=== PATIENT | female | born 1975 | race Caucasian/White ===

== ENCOUNTER → 2017-11-28 10:39 | Outpatient (CLI) | payer OTHER, SELFPAY ==
[2017-11-28 11:40] LABS: Add Manual Diff / Slide Review NO; Basophils Percent Auto 0.3 % (0-2); Eosinophils Percent Auto 0.3 % (2-4); Hematocrit 41.6 % (36-46); Hemoglobin 14.2 g/dL (12.0-16.0); Lymphocytes Percent Auto 29.9 % (25-40); Mean Corpuscular HGB Conc 34.1 % (30-36); Mean Corpuscular Hemoglobin 28.5 PG (26-34); Mean Corpuscular Volume 83.7 fL (80-100); Monocytes Percent Auto 6.6 % (3-14); Neutrophils Absolute Auto 6200 /uL (3000-5900); Neutrophils Percent Auto 62.9 % (50-75); Platelet Count 250 X10^3/uL (150-400); Red Blood Cell Count 4.97 X10^6/uL (4.0-5.2); Red Cell Distribution Width 13.5 % (11.6-14.8); White Blood Cell Count 9.8 X10^3/uL (4.5-11.0)
[2017-11-28 11:41] LABS: Blood Urea Nitrogen 12 mg/dL (7-17); Calcium 9.4 mg/dL (8.4-10.2); Carbon Dioxide 29 mmol/L (22-32); Chloride 101 mmol/L (98-107); Estimated Glomerular Filt Rate > 60.0 mL/min (>60); Glucose 101 mg/dL (70-100); HEMOLYSIS 20 (0-50); Potassium 4.2 mmol/L (3.4-5.1); Sodium 141 mmol/L (137-145)
[2017-11-28 12:16] LABS: Bacteria Urine None Seen; RBC Urine None Seen (0-5/HPF); WBC Urine None Seen (0-5/HPF)
[2017-11-28 14:19] LABS: Appearance Urine UA CLEAR; Bilirubin Urine UA NEGATIVE (NEGATIVE); Color Urine UA YELLOW; Glucose Urine UA NEGATIVE (Normal); Ketones Urine UA NEGATIVE (NEGATIVE); Leukocyte Esterase Urine UA NEGATIVE (NEGATIVE); Nitrite Urine UA Negative (Negative); Occult Blood Urine UA 1+ (Negative); Protein Urine UA NEGATIVE (Negative); Specific Gravity Urine UA 1.015 (1.000-1.035); Urobilinogen Urine UA 0.2 E.U./dL (0.2); pH Urine UA 7.5 (4.5-8.0)
[2017-11-28 14:35] LABS: Squamous Epithelial Cell Urine 5-10 /HPF
== END ==
PROVIDERS: PCP Family Medicine; Visit Provider Obstetrics & Gynecology
DX: N93.9 Abnormal uterine and vaginal bleeding, unspecified (principal); R10.2 Pelvic and perineal pain
CPT/HCPCS: 36415; 80048; 81001; 85025; 86850; 86900; 86901; 87086

== ENCOUNTER 2017-12-01 06:29 | Inpatient (IN) | payer OTHER, SELFPAY ==
[2017-11-20 08:33] VITALS: BMI 43.0
[2017-12-01] VITALS (17 sets, daily range): BP systolic 119–143; BP diastolic 57–87; PULSE 62–92; RESP 10–18; TEMP 36.1–36.9; O2SAT 90–100; BMI 43.0
--- NOTE | 2017-12-01 | PATH_ITS ---
[facility] Accession Number: [id number] . 01 Material submitted: . UTERUS,BILATERAL FALLOPIAN TUBES AND RIGHT OVARY . 01 Clinical history: . PLEASE ANALYZE ADENOMYOSIS PER SURGEON DR. BAZAN . 02 Diagnosis: Uterus, Bilateral Fallopian Tubes and Right Ovary, Hysterectomy, Bilateral Salpingectomy, and Right Oophorectomy (Weight 164 grams): Cervix with no significant histomorphologic abnormality. Endocervix with nabothian gland cysts and microglandular hyperplasia; negative for glandular dysplasia and malignancy. Weakly proliferative and disordered proliferative endometrium; negative for glandular hyperplasia, cytologic atypia, and malignancy. Myometrium with involvement by adenomyosis and with one intramural leiomyoma (0.5 cm). Uterine serosa with no significant histomorphologic abnormality. Right and left fallopian tubes with benign paratubal cysts (1-3 mm in greatest dimension); negative for atypia and neoplasia. Right ovary with a hemorrhagic corpus luteum cyst, multiple follicular cysts, and with stromal hyperthecosis; negative for malignancy. MRV/12/03/2017 . 02 Electronically signed: . Yaima Adler MD, Pathologist NPI- [id number] . 01 Gross description: . Received in formalin, labeled uterus, BL fallopian tubes and right ovary, is a uterus (164 grams, 5.6 cm AP, 10.5 cm SI, 6.7 cm ML) with an attached right ovary (3.7 x 3.3 x 2.5 cm) and fimbriated fallopian tubes (right: length-5.2 cm, diameter-0.8 cm; left: length-5.5 cm, diameter-0.9 cm). The left ovary is absent. The cervix (2.0 cm AP, 3.5 cm ML) has a vaginal cuff (up to 1.3 cm in depth), transverse os, and patent endocervical canal. The endometrium (average thickness-0.2 cm) is solomon-pink smooth and flat. The myometrium (thickness-2.5 cm) is solomon-white with a focally white lacy pattern and contains a solid firm white whorled well-circumscribed homogenous nodule (0.5 x 0.5 x 0.4 cm). The serosa is pale solomon smooth and shiny. The ovary has solomon-yellow smooth flat serosa and solomon-white solid cystic parenchyma with corpus albicans and corpus luteum identified. The cavities (0.5 cm-2.5 cm) contain clear colorless fluid. The linings are smooth and flat with no excrescences identified. The fallopian tubes have dark maroon dull serosa with multiple paratubal cysts (0.1 cm-0.3 cm) containing clear turbid fluid. The lumens are solomon and unremarkable. Section code: (A1) anterior cervix; (A2) posterior cervix; (A3-A6) anterior endomyometrium; (A7-A10) posterior endomyometrium; (A11-A13) right ovary, patient access representative serial section; (A14) right fallopian tube, patient access representative serial section; (A15) right fimbria, bivalved, entirely submitted; (A16) left fallopian tube, patient access representative serial section; (A17) left fimbria, bivalved, entirely submitted. ([id number]) /[facility] . 02 Pathologist provided ICD-10: N80.0 . 02 CPT . 102315 Performed at: 01 [facility] [address] [facility]– [place], [place], [place] [id number] MD Zach Moses MD Phone: [phone] Performed at: 02 [facility] [address] [place], [place] [id number] MD Jesse Shaffer MD Phone: [phone]
--- NOTE | 2017-12-01 07:43 | PM.PREOP ---
Pre-operative Note Interval Note Pre-op Check: Yes History & Physical Reviewed by Physician Changes: No
[2017-12-01] MEDS: CEFAZOLIN 2 GM/100 ML FROZ.PIGGY IV (08:00)
[2017-12-01] MEDS: LACTATED RINGERS 1,000 ML 42 ML IV ×2 (08:18→09:42)
--- NOTE | 2017-12-01 08:55 | SUR.OPER ---
Lithotomy on padded OR bed. Solana Pad Positioner under torso. Head on pillow, arms foam padded and on padded armboards secured <90 abduction. Legs secured in padded yellow fins stirrups.
[2017-12-01] MEDS: BUPIVACAINE 0.25% (PF) VIAL 30 ML INJ (09:33)
[2017-12-01] MEDS: LIDOCAINE 1% W/EPI INJ 4 ML INJ (09:34)
[2017-12-01] MEDS: ACETAMINOPHEN IV 1,000 MG/100 ML VIAL 400 MG IV (10:06)
[2017-12-01] MEDS: fentaNYL 100 MCG/2 ML INJ 50 MCG IV (11:51)
--- NOTE | 2017-12-01 11:58 | P.OP_ITS ---
Operative Date/Time/Diagnoses Date of procedure: 12/01/17 Time of procedure: 08:00 Pre-op diagnosis: Abnormal uterine bleeding, chronic pelvic pain Post-op diagnosis: same (Suspected adenomyosis) Procedure: Procedures Operation Date: 12/01/17 07:45 Actual Procedures Side Surgeon p Laparoscopic Assisted Vag Hysterectomy w/Bilat Salpingectomy & Right Oophorectomy Minerva Presley MD Indications: The patient is a 42-year-old 4, para 3, abortus 1 female here for hysterectomy for definitive surgical management of abnormal uterine bleeding and chronic pelvic pain. She has had chronic right lower quadrant pain that comes and goes and has not improved with a progestin intrauterine device and ovulation suppression. Her pain increases just prior to and during her vaginal bleeding episodes. Her bleeding was doing better since the insertion of the Mirena; however, menses since October have been much more bothersome and prolonged. She had a an MRI in July 2017 that showed diffuse adenomyosis and a small submucosal versus intramural probable fibroid. She had an endometrial biopsy in July 2016, and Mirena IUD was inserted at that time for management of her abnormal uterine bleeding. Utrasound at that time was notable for an anterior uterine mass suggestive of fibroid versus adenomyosis. After reviewing all of her management options, the patient elects to do have a hysterectomy with a right oophorectomy, as the majority of her pain is at the right lower quadrant. The risks, benefits, limitations, alternatives, and expectations of surgery were discussed, and the consent was reviewed and signed prior to the date of surgery. Surgeon: Minerva Presley Thermostatic Controls Supervisor: Piter Elise Anesthesia Type: General and Local (0.25% marcaine (plain) and 1% lidocaine with epi) Operative Notes Findings: Exam under anesthesia: The uterus was anteverted and measured approximately 8 weeks in size. No adnexal masses were palpable. Operative findings: The uterus was approximately 8 weeks in size. The ovaries were normal in appearance bilaterally. Both fallopian tubes were noted to have diffuse cystic lesions suggestive of endosalpingiosis. There were no endometriosis lesions noted. Athin adhesion from the left ovary into the left ovarian fossa was noted. The appendix was not visualized. Closure Type: primary Specimen(s): left tube, right tube & ovary and uterus (Uterus, cervix, bilateral fallopian tubes, and right ovary - sent as one specimen) Applied: catheter Estimated blood loss (mL): 200 Blood products transfused: none Procedure in detail: The patient was taken to the operating room, where general endotracheal anesthesia was administered without complications. The patient was placed into the low dorsal lithotomy position with her lower extremities in Yellofin stirrups. Exam under anesthesia was then performed with the findings noted above. Perineum, vagina, and abdomen were then prepped and draped in a sterile fashion. A Dwyer catheter was then placed. Procedure time-out was then performed. Attention was first turned to the perineum for placement of the uterine manipulator. A sterile bivalve speculum was inserted into the vagina, then the anterior lip of the cervix was grasped with a single-tooth tenaculum. Her Mirena intrauterine device was removed easily using a ring forceps. A ZUMI uterine manipulator was then advanced easily. The balloon was inflated, then the tenaculum and speculum removed from the vagina. Local anesthetic was then injected infraumbilically using 0.25% Marcaine. A vertical skin incision was then made with a scalpel below the umbilicus measuring approximately 7 mm in length. The abdominal wall was then grasped and tented up while a Veress needle was inserted through the incision. Saline drop test was suggestive of intraperitoneal placement. Carbon dioxide gas insufflation was then performed with high opening pressures noted. After several more attempts to enter the peritoneal cavity, the decision was made to perform an open laparoscopy. The fascia was grasped with 2 Drew clamps and then incised using Medina scissors. 0 Vicryl suture was placed at the corners of the fascial incision. The peritoneum was then entered using a push and spread technique with a Lakeshia clamp. The Hassion trocar was then inserted into the peritoneum. The laparoscoped was then introduced and correct peritoneal location was noted. The abdomen and pelvis were visualized with the findings as noted above. The patient was placed into Trendelenburg position for better visualization. A second and third trocar was inserted at the patient's lower quadrants. These were done by first instilling local anesthetic, then incising the skin and inserting a 5 mm trocar under direct visualization using the laparoscopic. An atraumatic grasper was then utilized to manipulate the tissue and improve visualization throughout the pelvis. Gentle traction was then applied on the left distal fallopian tube which was pulled medially and superiorly. The left tubo-ovarian pedicle was then cross- clamped, cauterized, and cut using the Olympus PlasmaKinetic, and the left mesosalpinx dissected to separate the left tube from the ovary. The left round ligament was then cross clamped, cauterized, and cut. Residual bleeding was controlled with Bovie cautery. The anterior leaf of the broad ligament was undermined with the PlasmaKinetic and the left aspect of the bladder flap created using Bovie cautery. The left utero-ovarian pedicle was then cross clamped, cauterized, and cut, freeing the left ovary from the uterus. Some residual para uterine tissue was freed with Bovie cautery and gentle traction, skeletonizing the left uterine vessels. The left uterine vein and artery were then cross clamped, cauterized, and cut, and additional cautery applied as needed to achieve hemostasis. Attention was then turned to the patient's right adnexa. The right ovarian pedicle was then cross-clamped, cauterized x3, and cut. The right round ligament was then also cross clamped, cauterized, and cut, and the right anterior leaf of the broad ligament was undermined with the PlasmaKinetic to create the right side of the bladder flap using Bovie cautery. This incision was extended to the midline, meeting the dissection from the left side. Residual tissue between the right round ligament and the right ovarian pedicle was cross-clamped, cauterized, and cut. The right uterine vessels were then skeletonized, cross clamped cauterized, and cut. Additional cautery was applied as needed to achieve hemostasis. Once hemostasis was ensured attention was turned to the perineum for the vaginal portion of the case. Instruments were removed from the abdomen, leaving the trocars in place. The majority of the carbon dioxide gas was allowed to escape. Attention was turned to the patient's perineum. Her lower extremities were elevated into the high dorsal lithotomy position. The uterine manipulator was removed. A sterile weighted speculum was placed in the posterior vagina and a Mazin placed in the anterior vagina. The cervix was grasped with double tooth tenaculum, then 1% lidocaine with epinephrine was injected circumferentially for hemostasis. A circumferential incision was then made with Bovie cautery. Using blunt dissection with the equipment operator intermodal yard's finger the vaginal mucosa was gently pushed back off the cervix better visualizing the plane for the anterior- posterior peritoneal entry. The anterior peritoneum was then bluntly entered using push with the equipment operator intermodal yard's finger and a moist and lap sponge. The Schurz was then replaced. The posterior peritoneum was grasped and incised sharply using Metzenbaum scissors. The Auvard speculum was then inserted into the posterior peritoneum. The left uterosacral ligament was cross clamped with a Rancho clamp then cut and suture ligated with an 0 Vicryl suture in a Rancho stitch fashion. This was tagged for later identification. This step was performed on the right uterosacral ligament clamped then cut and suture ligated with an 0 Vicryl suture. The right cardinal and inferior uterine vessels were then cross clamped with the Rancho clamp cut and suture ligated with an 0 Vicryl suture. This step was then performed on the patient's left cardinal and uterine vessels as well. The uterus and bilateral fallopian tubes were then removed through the vagina. The pedicles were inspected, and bleeding noted both on the left and right sides. Hemostasis was achieved by grasping the tissue with Allis clamps or Rancho clamps, then using 0 vicryl suture beneath the clamp. Some cautery was also used. The peritoneal closure was started but proved very challenging due to poor visualization; so, a partial peritoneal closure was performed, reapproximating the uterosacral ligaments. The vaginal mucosa was then closed with serial [id number] sutures of 0 Vicryl. Carbon dioxide gas was then reinflated into the abdomen. The cuff was irrigated and suctioned. Some residual bleeding posterior to the cuff was controlled with Bovie cautery. The left ovary and right ovarian vessels appeared hemostatic. At this point the laparoscopic portion of the procedure was deemed complete. The carbon dioxide gas was allowed to escape and the trocars removed from the abdomen. The umbilical fascia was closed by tying the 0 vicryl sutures down, then the trocar sites were then closed with 4-0 Monocryl in a subcuticular fashion. Exofin skin glue was then applied. The sponge- stick was then removed from the vagina. At this point the procedure was deemed complete. Sponge, lap, and needle count were correct x3. The patient was subsequently awakened, extubated, and transferred to the PACU in stable condition. Complications: none Post-operative Condition: stable Disposition: Acute Care Plan for aftercare: Admit to [facility], and consider discharge home tomorrow.
[2017-12-01] MEDS: OXYCODONE/ACETAMINOPHEN 5/325 TABLET 2 TAB PO ×3 (14:01→23:56)
[2017-12-01] MEDS: LACTATED RINGERS 1,000 ML 100 ML IV ×2 (14:01→23:57)
--- NOTE | 2017-12-01 14:16 | PC.NURSE ---
day shift pt arrived in bed. states pain controlled. pt started on diet and tolerated without issue. did start c/o pain later in shift. medicated with 2 percocet, awaiting results. villarreal patent and draining clear yellow urine. present throughout most of shift. hourly rounding provided, call light within reach.
[2017-12-01] MEDS: DOCUSATE 250 MG CAPSULE PO (21:26)
--- NOTE | 2017-12-01 22:59 | PC.NURSE ---
alert and oriented x4, vss on ra, pain stated to be controlled with two percocet q4 or upon request. Villarreal draining to gravity, clear, yellow urine. bakari pad with some spotting. ambulated olivares with fww d/t villarreal's presence, good gait, no concerns noted.
[2017-12-02] VITALS (7 sets, daily range): BP systolic 132–137; BP diastolic 68–75; PULSE 65–70; RESP 16–18; TEMP 36.5–36.7; O2SAT 98–100
[2017-12-02 05:49] LABS: Add Manual Diff / Slide Review NO; Basophils Percent Auto 0.3 % (0-2); Hematocrit 34.1 % (36-46); Hemoglobin 11.7 g/dL (12.0-16.0); Lymphocytes Percent Auto 16.8 % (25-40); Mean Corpuscular HGB Conc 34.4 % (30-36); Mean Corpuscular Hemoglobin 28.6 PG (26-34); Mean Corpuscular Volume 83.2 fL (80-100); Monocytes Percent Auto 7.4 % (3-14); Neutrophils Absolute Auto 11200 /uL (3000-5900); Neutrophils Percent Auto 75.5 % (50-75); Platelet Count 225 X10^3/uL (150-400); Red Cell Distribution Width 13.4 % (11.6-14.8); White Blood Cell Count 14.8 X10^3/uL (4.5-11.0)
[2017-12-02 05:55] LABS: BUN Creatinine Ratio 17.1 (6-22); Blood Urea Nitrogen 12 mg/dL (7-17); Calcium 8.8 mg/dL (8.4-10.2); Carbon Dioxide 27 mmol/L (22-32); Chloride 105 mmol/L (98-107); Estimated Glomerular Filt Rate > 60.0 mL/min (>60); Glucose 124 mg/dL (70-100); HEMOLYSIS < 15 (0-50); Sodium 143 mmol/L (137-145)
[2017-12-02] MEDS: OXYCODONE/ACETAMINOPHEN 5/325 TABLET 2 TAB PO ×3 (06:34→16:58)
[2017-12-02] MEDS: DOCUSATE 250 MG CAPSULE PO (08:54)
--- NOTE | 2017-12-02 14:53 | PC.NURSE ---
day shift pt states pain controlled with percocet. Is c/o some abd pain as well as some shoulder pain. villarreal removed this AM. pt able to urinate 150ml, PVR of 100 after. about 2 hrs afterwards, pt did have a void of 1000ml. pt states she normally urinates large amounts only a few times a day. at bedside. Pt would like to d/c home. hourly rounding provided, call light within reach.
--- NOTE | 2017-12-02 18:17 | PM.DS.1 ---
History of Present Illness Date Patient Seen: 12/02/17 Time Patient Seen: 18:00 Chief complaint: [id number] LAVH MARIXA SALPINGECTOMY, R OOPHORECTOMY Narrative: The patient is a 42-year-old, 4, para 3, abortus 1 female here for hysterectomy for definitive surgical management of abnormal uterine bleeding and chronic pelvic pain. We have reviewed all her management options and she desires a hysterectomy. The consent was reviewed and signed prior to the day of surgery after all risks, limitations, benefits, alternatives, and expectations were reviewed. Discharge Providers Date of admission: 12/01/17 06:29 Primary care physician: Freddy Wright MD Discharge provider: Minerva Presley MD Summary Discharge Diagnosis: Abnormal uterine bleeding and chronic pelvic pain now status post hysterectomy Hospital Course: The patient was admitted to the PACU immediately following an uncomplicated laparoscopic assisted vaginal hysterectomy with bilateral salpingectomy and right oophorectomy. Her postoperative course was uncomplicated. Her vital signs were normal and stable. She was discharged home on postoperative day 1, voiding freely, tolerating a regular diet, and controlling pain with oral pain medications. Status at Discharge Cognitive/behavioral status at discharge: Appropriate behavior Functional status at discharge: independent ambulation Overall status at discharge: patient is progressing back to baseline Time Spent with Patient Less than 30 minutes Exam Vital Signs (past 8 hours): - 12/02/17 14:00 12/02/17 15:00 Temperature 98.0 F Pulse Rate 65 Respiratory Rate 16 Blood Pressure 137/74 H Pulse Oximetry 99 99 Oxygen Delivery Method Room Air Oxygen Flow Rate 2 Narrative Exam Narrative: General: The patient is lying in bed in no apparent distress, alert and oriented x3. Lungs: Clear to auscultation bilaterally with no wheezes or crackles. Heart: Regular rate and rhythm with no murmurs, rubs, or gallops. Abdomen: Soft, obese, appropriately tender at the lower quadrants, bowel sounds heard throughout. Incisions: Skin glue intact at laparoscopy incisions x3. No erythema, separation, or discharge noted. Extremities: Warm and well perfused with no clubbing, cyanosis, or edema. Objective Labs Result Diagrams: 12/02/17 05:29 12/02/17 05:29 Labs: Laboratory Results - last 24 hr 12/02/17 12/02/17 05:29 05:29 WBC 14.8 H RBC 4.10 Hgb 11.7 L Hct 34.1 L MCV 83.2 MCH 28.6 MCHC 34.4 RDW 13.4 Plt Count 225 Neut % (Auto) 75.5 H Lymph % (Auto) 16.8 L Ransom % (Auto) 7.4 Eos % (Auto) 0.0 L Baso % (Auto) 0.3 Neut # (Auto) 57951 H Sodium 143 Potassium 4.0 Chloride 105 Carbon Dioxide 27 BUN 12 Creatinine 0.70 Estimated GFR > 60.0 BUN/Creatinine Ratio 17.1 Glucose 124 H Calcium 8.8 Discharge Plan Discharge Plan Patient Disposition: Home Discharge comment: Please see discharge handout for further information. Discharge Med Rec/Prescriptions Prescriptions: Continue gabapentin 300 mg Capsule 300 mg PO TID RF: 0 cetirizine [Zyrtec] 10 mg Tablet 10 mg PO DAILY RF: 0 ibuprofen 800 mg Tablet 800 mg PO Q8H RF: 0 Discontinued acetaminophen [Tylenol Arthritis Pain] 650 mg Tablet Extended Release 650 mg PO Q8H PRN (Reason: pain) RF: 0 Follow up/Referrals: Freddy Wright MD [Primary Care Provider] - Provider Discharge Instructions Diet: Diet as Tolerated Activity: Pelvic rest for 6 weeks. No heavy lifting for 2 weeks. No driving for 1-2 weeks (until pain-free off narcotic pain medications). No exercise for 4 weeks. Cold/Heat Therapy: As needed Other treatments: Please see discharge handout Skin/Wound/Dressing Care Skin care: Okay to shower Report to your healthcare provider any signs of infection, such as:: chills, fever, night sweats, increased pain and unusual drainage Dressing: Monitor incisions for redness, opening, or discharge. Some bruising is to be expected. Visit Report/Discharge Packet Instructions: DI for Oophorectomy, DI for Vaginal Hysterectomy Visit Report Forms: Stroke Signs & Symptoms Print Language: Croatian Discharge Data Primary Care Provider: Freddy Wright Attending Provider: Minerva Presley Admit Date/Time: 12/01/17 06:29 Quality VTE Deep Vein Thrombosis/Pulmonary Embolism Present on Admission: No
--- NOTE | 2017-12-02 18:33 | CM.DANOTE ---
discharged home accompanied by , pain stated to be controlled, notified when last medication administered, reviewed discharge packet to include signs and symptoms of infection, signs of stroke, how to use medications, restrictions, and follow up appointment date. Verbalized understanding, escorted via wheelchair by staff down to ER entrance to private vehicle.
== END 2017-12-02 18:36 | disposition home or self-care (01) | DRG 742 ==
PROVIDERS: Admitting Provider Obstetrics & Gynecology; PCP Family Medicine; Visit Provider Obstetrics & Gynecology
PROC: 0UT9FZZ Resection of Uterus, Via Natural or Artificial Opening With Percutaneous Endoscopic Assistance (ICD-10-PCS; principal; 2017-12-01 07:45)
DX: N93.9 Abnormal uterine and vaginal bleeding, unspecified (principal); Z68.41 Body mass index [BMI] 40.0-44.9, adult; R10.2 Pelvic and perineal pain; E66.01 Morbid (severe) obesity due to excess calories; N80.0 Endometriosis of uterus
CPT/HCPCS: 36415; 80048; 85025; 88307; J0131; J0330; J0690; J1100; J1885; J2250; J2274; J2405; J2704; J3010

== ENCOUNTER → 2022-06-19 15:08 | Outpatient (CLI) | payer OTHER, SELFPAY ==
--- NOTE | 2022-06-19 | DI.US.S_ITS ---
PROCEDURE: US PERIPH VENOUS UP EXTREM LT INDICATIONS: LEFT FOREARM PAIN TECHNIQUE: Real-time imaging, as well as color and pulse Doppler interrogation, was performed of the left upper extremity deep veins from the inferior neck to the antecubital fossa. COMPARISON: None. FINDINGS: The internal jugular vein, visualized portions of the subclavian vein, axillary, and brachial veins are free of intraluminal thrombus. Where physically possible, the veins are normally compressible. Color and pulse Doppler demonstrate normal intraluminal flow, with expected phasicity and pulsatility. Additional scanning of the cephalic and basilic veins of the superficial system demonstrate normal compressibility, without thrombus. IMPRESSION: No sonographic evidence DVT in the left upper extremity. Dictated by: Evelio Andrews M.D. on 06/19/2022 at 16:34 Approved by: Evelio Andrews M.D. on 06/19/2022 at 16:34
[2022-06-19 09:24] VITALS: BMI 43.0
== END ==
PROVIDERS: PCP Student in an Organized Health Care Education/Training Program; Referring Provider Student in an Organized Health Care Education/Training Program; Visit Provider Student in an Organized Health Care Education/Training Program
DX: M79.632 Pain in left forearm (principal)
CPT/HCPCS: 93971

== ENCOUNTER 2023-07-31 10:43 | Day surgery (SDC) | payer OTHER, SELFPAY ==
[2022-06-19 09:24] VITALS: BMI 43.0
[2023-07-30 14:52] VITALS: BMI 41.5
--- NOTE | 2023-07-31 09:46 | PM.HP.1 ---
History of Present Illness History of Present Illness Date Patient Seen: 07/30/23 Time Patient Seen: 13:00 Chief complaint: Right Carpal Tunnel Release Narrative: 48-year-old female with symptoms of right carpal tunnel affecting her everyday hand use. Patient is complaining of numbness tingling and pain. Due to these symptoms, patient is interested in surgical treatment. [facility] Medical History Myotonia congenita Morbid obesity with BMI of 40.0-44.9, adult Abnormal uterine bleeding (AUB) Burn Seasonal allergic conjunctivitis Seasonal allergies Surgical History History of laparoscopic-assisted vaginal hysterectomy (12/01/17) Social History household members: spouse and children Smoking Status: Never smoker alcohol intake: current Meds Home Medications and Allergies Home Medications Medication Instructions Recorded Confirmed Type acetaminophen 650 mg 650 mg PO Q8H PRN pain 11/20/17 12/01/17 History tablet,extended release (Tylenol Arthritis Pain) cetirizine 10 mg tablet (Zyrtec) 10 mg PO DAILY 11/20/17 12/01/17 History gabapentin 300 mg capsule 300 mg PO TID 11/20/17 12/01/17 History ibuprofen 800 mg tablet 800 mg PO Q8H 11/20/17 12/01/17 History oxycodone-acetaminophen 5 mg-325 2 cap PO Q6HR PRN Pain (Scale 12/02/17 12/02/17 History mg tablet Score 7-10) Allergies Allergy/AdvReac Type Severity Reaction Status Date / Time Sulfa (Sulfonamide Allergy Rash Verified 11/20/17 08:40 Antibiotics) poison dena extract AdvReac Rash Verified 11/20/17 08:40 Exam Narrative Exam Narrative: Patient was signs of carpal tunnel on physical exam with decreased sensation in the median nerve distribution as well as a positive Tinel's, Durkan's, and Phalen's test at the carpal tunnel. Full range of motion and no sign of any significant thenar atrophy. Assessment & Plan Assessment & Plan narrative: Patient with right carpal tunnel with positive exam findings as well as EMG findings. Went over treatment options both operative versus non operative and patient is interested in proceeding with operative treatment. Fully understands the risks and limitations associated with the procedure and all of her questions and concerns were answered to her full satisfaction. The risk, benefits, alternatives, possible complications, operative course, and postop outcomes were discussed. Complications including but not limiting to bleeding, infection, fracture, nerve injury, continued pain postoperatively or instability postoperatively were discussed in detail. Medical complications including but not limited to deep venous thrombosis event, anesthesia complications with excessive bleeding, vascular events or cardiac events and other possible complications were discussed in detail. Need for postoperative rehabilitation and anticipated hospital stay and clinical course were discussed in detail. Patient acknowledges understanding and elects to proceed with surgery. Patient has a family history of malignant hyperthermia. The OR staff has been made aware.
--- NOTE | 2023-07-31 09:49 | PM.PREOP ---
Pre-operative Note Interval Note History & Physical reviewed/Exam performed by Physician: Yes Changes to H&P: No
[2023-07-31] MEDS: LACTATED RINGERS 1,000 ML 42 ML IV (11:12)
[2023-07-31] MEDS: ACETAMINOPHEN 325 MG TABLET 975 MG PO (11:15)
[2023-07-31 11:25] VITALS: BP 138/90; PULSE 86; RESP 16; TEMP 36.2; O2SAT 99; BMI 41.5
--- NOTE | 2023-07-31 11:25 | P.OP_ITS ---
Operative Date/Time/Diagnoses Date of procedure: 07/31/23 Time of procedure: 12:00 Pre-op diagnosis: Right carpal tunnel Post-op diagnosis: same Procedure & Clinicians Procedure: Right carpal tunnel release Same procedure as scheduled: Yes Indications: Compression of the median nerve at the carpal tunnel with positive physical exam and EMG studies. Surgeon: Randall Li Click Yes if Unassisted: Yes Anesthesia Type: Sedation and Local Operative Notes Findings: Compression of the median nerve at the carpal tunnel Closure Type: primary Estimated Blood Loss (mL): 0 Procedure in detail: On date of service, the patient was met in the holding area. Patients operative site was signed and witnessed by the OR staff. The surgery was once again discussed with the patient, and any remaining questions they had were answered fully. Patient was taken back to the operating theater and placed on the op erating table in a supine position. Great care was taken to ensure that all bony prominences were carefully padded. A well-padded tourniquet was placed up along the upper extremity. A timeout was performed to verify patient's name, procedure, and operative site. The arm was then prepped and draped in the normal sterile fashion. A 15 blade was used to incise through skin In the center of the palm. Pickups and tenotomy scissors were used to dissect down until the palmar fascia was visualized. The palmar fascia was then sharply incised using a 15 blade. This gave us good visualization of the carpal ligament. A small opening was made into the carpal ligament, and a curved hemostat was placed into that opening. A 15 blade was then used to sharply incise the carpal ligament with the structures beneath being protected by the hemostat. Pickups and Metzenbaum scissors were used to complete the decompression both distally and proximally. This provided a complete decompression of the median nerve. The wound was then irrigated and closed with nylon. The hand was then cleaned, dried, and dressed. Patient was taken to the PACU in stable condition. Complications: none Post-operative Condition: stable Disposition: PACU Plan for aftercare: Patient follow our postoperative protocol for carpal tunnel release
--- NOTE | 2023-07-31 11:32 | SUR.OPER ---
Supine on padded OR bed, head on pillow, arms secured on padded arm boards at <90 degrees abduction, legs uncrossed, safety belt at thigh, tape over blanket over lower legs.
[2023-07-31] MEDS: CEFAZOLIN VIAL 3 GM in SODIUM CHLORIDE 0.9% 100 ML IV (11:51)
[2023-07-31] MEDS: BUPIVACAINE 0.5% W/ EPI (PF) 30 ML VIAL INJ (12:02)
[2023-07-31 12:15] VITALS: BP 146/80; PULSE 75; RESP 16; TEMP 36.2; O2SAT 98
[2023-07-31 12:20] VITALS: BP 146/80; PULSE 72; RESP 16; O2SAT 97
[2023-07-31 12:32] VITALS: BP 98/65; PULSE 77; RESP 16; TEMP 36.2; O2SAT 98
== END 2023-07-31 13:01 | disposition home or self-care (01) ==
PROVIDERS: PCP Student in an Organized Health Care Education/Training Program; Referring Provider Orthopaedic Surgery; Visit Provider Orthopaedic Surgery
PROC: (CPT 64721; principal; 2023-07-31 11:45)
DX: G56.01 Carpal tunnel syndrome, right upper limb (principal)
CPT/HCPCS: 64721; J0690; J2704; J3010